=== PATIENT | male | born 1995 | race Caucasian/White ===

== ENCOUNTER 2016-12-12 02:06 | Emergency (ER) | payer BC ==
[~2016-12-12] VITALS: Ht 182.9 cm; Wt 88.1 kg
[2016-12-12 02:12] VITALS: Ht 182.9 cm; Wt 88.1 kg
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
[2016-12-12 04:20] VITALS: BP 110/78; PULSE 97; TEMP 37; O2SAT 100
--- NOTE | 2016-12-12 07:57 | DIAGNOSTIC IMAGING REPORT ---
CT FACIAL BONES-MXILLOFAC WITHOUT CT DOSE: CLINICAL HISTORY: Facial pain status post trauma COMPARISON STUDY: No previous studies for comparison. TECHNIQUE: Helical images were acquired in the transverse plane. The study was reviewed and analyzed on the independent 3-D workstation. The pterygoid plates appear intact. The zygomatic arches appear intact. The globes appear intact. There is no evidence of orbital emphysema. The orbital limon and floor appear intact. The mandibular condyles appear intact. There are comminuted nasal bone fractures. There is a fracture the inferior nasal spine. There is left frontal and periorbital soft tissue swelling. IMPRESSION: Comminuted nasal bone fractures. Fracture of the inferior nasal spine. Electronically signed by: Rex Medeiros M.D. 12/12/2016 7:56 AM Dictated Date/Time: 12/12/2016 7:52 AM
--- NOTE | 2016-12-12 07:59 | DIAGNOSTIC IMAGING REPORT ---
CT OF THE CERVICAL SPINE CLINICAL HISTORY: Neck pain status post trauma COMPARISON STUDY: No previous studies for comparison. CT DOSE: 1096.29 mGy.cm TECHNIQUE: CT scan of the cervical spine was performed from the skull base to the thoracic inlet. Images are reviewed in the axial, sagittal, and coronal planes. IV contrast was not administered for this examination. FINDINGS: The visualized portions of the lung apices reveal no evidence of pneumothorax. The prevertebral soft tissues are normal. No fractures or subluxations are visualized. Tiny densities adjacent to the anterior superior C5 and C6 endplates are not felt to be acute. IMPRESSION: No evidence of acute fracture or traumatic subluxation. Electronically signed by: Rex Medeiros M.D. 12/12/2016 7:58 AM Dictated Date/Time: 12/12/2016 7:56 AM
--- NOTE | 2016-12-12 08:09 | DIAGNOSTIC IMAGING REPORT ---
CT HEAD WITHOUT CONTRAST (CT) CLINICAL HISTORY: Head pain status post trauma COMPARISON STUDY: No previous studies for comparison. TECHNIQUE: Axial CT of the brain is performed from the vertex to the skull base. IV contrast was not administered for this examination. CT DOSE: FINDINGS: No intra or extra-axial mass lesions are visualized. There is no CT evidence of acute cortical infarction. There is no evidence of midline shift. There is no acute hemorrhage. No calvarial fractures are visualized. There is left-sided scalp and periorbital edema. There is no evidence of pathologic ventricular dilatation. There is no evidence of acute sinusitis IMPRESSION: No acute intracranial findings Electronically signed by: Rex Medeiros M.D. 12/12/2016 8:07 AM Dictated Date/Time: 12/12/2016 8:06 AM
== END 2016-12-12 04:22 | disposition home or self-care (01) ==
LOC: C.EDB 02:08
DX: S02.2XXA Fracture of nasal bones, initial encounter for closed fracture (principal); Y09 Assault by unspecified means; F10.129 Alcohol abuse with intoxication, unspecified